=== PATIENT | male | born 1980 | race Caucasian/White ===

== ENCOUNTER 2018-04-05 06:15 | Day surgery (SDC) | payer BC ==
[2018-04-05] VITALS (17 sets, daily range): BP systolic 100–123; BP diastolic 54–89
[~2018-04-05] VITALS: Ht 180.3 cm; Wt 78.9 kg
--- NOTE | 2018-04-05 06:20 | Emergency Room Report ---
History of Present Illness General Chief Complaint: abdominal pain Source: Patient Present Illness HPI Patient is a 37-year-old male presented after increased abdominal pain. Patient was having increased pain to the epigastric area. Patient had recently seen accountant certified public and was noted to have worsening pain.Patient was noted to have increased epigastric pain. He had frequent NSAID use. Pain was severe in nature. He denies any vomiting. Allergies: Coded Allergies: No Known Allergies (Unverified , 04/05/18) Patient History Past Medical History: see triage record Reviewed Nursing Documentation: PMH: Agreed; PSxH: Agreed Review of Systems All Other Systems: limited - by mental status Physical Exam Sp02 EP Interpretation: reviewed, normal General Appearance: normal inspection, well appearing, no apparent distress, alert, GCS 15 Head: atraumatic ENT: normal ENT inspection, hearing grossly normal, normal voice Neck: normal inspection, full range of motion, supple, no bony tend Respiratory: normal inspection, lungs clear, normal breath sounds, no respiratory distress, no retraction, no wheezing Cardiovascular #1: regular rate, rhythm, no edema Gastrointestinal: soft, tenderness Genitourinary: no CVA tenderness Musculoskeletal: normal inspection, back normal, normal range of motion Neurologic: normal inspection, alert, oriented x3, responsive, mechanical project engineer III-XII nml as tested, speech normal Psychiatric: normal inspection, judgement/insight normal, mood/affect normal Skin: normal inspection, normal color, no rash Medical Decision Making Diagnostic Impression: Primary Impression: Gastritis ER Course Patient presented for abdominal pain. Differential diagnoses included ischemic bowel, appendicitis, perforated viscus, abdominal aortic aneurysm, inferior myocardial infarction, viral gastroenteritis. Because of complexity of patient' s case laboratory testing and imaging studies were ordered. Patient was noted to have increased epigastric pain. GI consult was obtained.Patient was noted to have recent NSAID use. There is some concern for gastric ulcer. Patient had endoscopy and was noted to have some gastritis as well as duodenitis. Patient will be discharged home. Labs Test 04/05/18 06:40 04/05/18 07:10 White Blood Count 4.8 K/UL (4.8-10.8) Red Blood Count 5.00 M/UL (4.70-6.10) Hemoglobin 15.8 G/DL (14.2-18.0) Hematocrit 44.6 % (42.0-52.0) Mean Corpuscular Volume 89 FL (80-99) Mean Corpuscular Hemoglobin 31.6 PG (27.0-31.0) Mean Corpuscular Hemoglobin Concent 35.4 G/DL (32.0-36.0) Red Cell Distribution Width 10.9 % (11.6-14.8) Platelet Count 138 K/UL (150-450) Mean Platelet Volume 9.1 FL (6.5-10.1) Neutrophils (%) (Auto) 50.3 % (45.0-75.0) Lymphocytes (%) (Auto) 36.3 % (20.0-45.0) Monocytes (%) (Auto) 9.1 % (1.0-10.0) Eosinophils (%) (Auto) 3.7 % (0.0-3.0) Basophils (%) (Auto) 0.6 % (0.0-2.0) Sodium Level 142 MMOL/L (136-145) Potassium Level 3.8 MMOL/L (3.5-5.1) Chloride Level 105 MMOL/L (98-107) Carbon Dioxide Level 34 MMOL/L (21-32) Anion Gap 3 mmol/L (5-15) Blood Urea Nitrogen 20 mg/dL (7-18) Creatinine 1.2 MG/DL (0.55-1.30) Estimat Glomerular Filtration Rate > 60 mL/min (>60) Glucose Level 99 MG/DL (74-106) Calcium Level 8.8 MG/DL (8.5-10.1) Total Bilirubin 0.3 MG/DL (0.2-1.0) Aspartate Amino Transf (AST/SGOT) 16 U/L (15-37) Alanine Aminotransferase (ALT/SGPT) 23 U/L (12-78) Alkaline Phosphatase 43 U/L (46-116) Total Protein 7.1 G/DL (6.4-8.2) Albumin 3.6 G/DL (3.4-5.0) Globulin 3.5 g/dL Albumin/Globulin Ratio 1.0 (1.0-2.7) Lipase 151 U/L (73-393) Urine Color Yellow Urine Appearance Clear Urine pH 5 (4.5-8.0) Urine Specific [place] 1.025 (1.005-1.035) Urine Protein Negative (NEGATIVE) Urine Glucose (UA) Negative (NEGATIVE) Urine Ketones Negative (NEGATIVE) Urine Blood Negative (NEGATIVE) Urine Nitrite Negative (NEGATIVE) Urine Bilirubin Negative (NEGATIVE) Urine Urobilinogen Normal MG/DL (0.0-1.0) Urine Leukocyte Esterase Negative (NEGATIVE) Status: improved Disposition: HOME, SELF-CARE Condition: Stable Scripts No Active Prescriptions or Reported Meds Zaire Shin MD Apr 05, 2018 06:20
--- NOTE | 2018-04-05 06:32 | NUR ---
ED Nurse Note: Patient walk in c/o upper abdominal pain for 1x week. Patient instructed by Dr Antonio to come to ED for endoscopy. Patient denies nausea/vomiting. Pt is AO x 4times, VSS, on room air no distress. ERMD seen Pt at bedside.
--- NOTE | 2018-04-05 06:50 | NUR ---
ED Nurse Note: Urine and blood sample sent to lab.
--- NOTE | 2018-04-05 06:55 | NUR ---
ED Nurse Note: Dr Antonio visited Pt at bedside.
[2018-04-05 06:57] LABS: BASOPHILS % (AUTO) 0.6 % (0.0-2.0); EOSINOPHILS % (AUTO) 3.7 % (0.0-3.0); HEMATOCRIT 44.6 % (42.0-52.0); HEMOGLOBIN 15.8 G/DL (14.2-18.0); LYMPHOCYTES % (AUTO) 36.3 % (20.0-45.0); MEAN CORPUSCULAR VOLUME 89 FL (80-99); MONOCYTES % (AUTO) 9.1 % (1.0-10.0); NEUTROPHILS % (AUTO) 50.3 % (45.0-75.0); PLATELET COUNT 138 K/UL (150-450); RED CELL DISTRIBUTION WIDTH 10.9 % (11.6-14.8); WHITE BLOOD COUNT 4.8 K/UL (4.8-10.8)
[2018-04-05 07:08] LABS: ANION GAP 3 mmol/L (5-15); BLOOD UREA NITROGEN 20 mg/dL (7-18); CALCIUM 8.8 MG/DL (8.5-10.1); CARBON DIOXIDE 34 MMOL/L (21-32); CHLORIDE 105 MMOL/L (98-107); CREATININE 1.2 MG/DL (0.55-1.30); POTASSIUM 3.8 MMOL/L (3.5-5.1); SODIUM 142 MMOL/L (136-145)
[2018-04-05 07:12] LABS: ALANINE AMINOTRANSFERASE 23 U/L (12-78); ALBUMIN 3.6 G/DL (3.4-5.0); ALKALINE PHOSPHATASE 43 U/L (46-116); ASPARTATE AMINO TRANSFERASE 16 U/L (15-37); BILIRUBIN,TOTAL 0.3 MG/DL (0.2-1.0)
--- NOTE | 2018-04-05 07:15 | NUR ---
ED Nurse Note: Pt went to GI lab procedure.
--- NOTE | 2018-04-05 07:18 | Pre-Procedure Note/Attestation ---
Pre-Procedure Note/Attestation Complete Prior to Procedure Planned Procedure: not applicable Procedure Narrative: egd Indications for Procedure Pre-Operative Diagnosis: abd pain Attestation I attest that I discussed the nature of the procedure; its benefits; risks and complications; and alternatives (and the risks and benefits of such alternatives ), prior to the procedure, with the patient (or the patient's legal maintenance representative). I attest that, if there was a reasonable possibility of needing a blood transfusion, the patient (or the patient's legal maintenance representative) was given the [facility] standardized written summary, pursuant to the Aidan Tessie Blood Safety Act ([place] Health and Safety Code # 1645, as amended). I attest that I re-evaluated the patient just prior to the surgery and that there has been no change in the patient's H&P, except as documented below: Adithya Antonio MD Apr 05, 2018 07:18
[2018-04-05] MEDS ORDERED: Midazolam 2mg/2ml Inj ONE (07:20)
--- NOTE | 2018-04-05 07:21 | Short Stay Surgery H&P ---
History of Present Illness History of Present Illness Chief Complaint abd pain HPI Ki Locke is a 37 year old male who was admitted on for Abdominal Pain Patient History Allergies: Coded Allergies: No Known Allergies (Unverified , 04/05/18) PAST MEDICAL HISTORY: (1) GERD (gastroesophageal reflux disease) Medication History No Active Prescriptions or Reported Meds Review of Systems Cardiovascular: Reports: no symptoms Respiratory: Reports: no symptoms Skeletal: Reports: no symptoms Gastrointestinal: Reports: no symptoms Genitourinary: Reports: no symptoms Neurologic: Reports: no symptoms Endocrine: Reports: no symptoms Physical Exam Vital Signs Last Vital Signs Date Time Temp Pulse Resp B/P (MAP) Pulse Ox O2 Delivery O2 Flow Rate FiO2 04/05/18 06:53 97.4 65 17 100/54 97 Room Air Labs Laboratory Tests Test 04/05/18 06:40 04/05/18 07:10 White Blood Count 4.8 K/UL (4.8-10.8) Red Blood Count 5.00 M/UL (4.70-6.10) Hemoglobin 15.8 G/DL (14.2-18.0) Hematocrit 44.6 % (42.0-52.0) Mean Corpuscular Volume 89 FL (80-99) Mean Corpuscular Hemoglobin 31.6 PG (27.0-31.0) H Mean Corpuscular Hemoglobin Concent 35.4 G/DL (32.0-36.0) Red Cell Distribution Width 10.9 % (11.6-14.8) L Platelet Count 138 K/UL (150-450) L Mean Platelet Volume 9.1 FL (6.5-10.1) Neutrophils (%) (Auto) 50.3 % (45.0-75.0) Lymphocytes (%) (Auto) 36.3 % (20.0-45.0) Monocytes (%) (Auto) 9.1 % (1.0-10.0) Eosinophils (%) (Auto) 3.7 % (0.0-3.0) H Basophils (%) (Auto) 0.6 % (0.0-2.0) Sodium Level 142 MMOL/L (136-145) Potassium Level 3.8 MMOL/L (3.5-5.1) Chloride Level 105 MMOL/L (98-107) Carbon Dioxide Level 34 MMOL/L (21-32) H Anion Gap 3 mmol/L (5-15) L Blood Urea Nitrogen 20 mg/dL (7-18) H Creatinine 1.2 MG/DL (0.55-1.30) Estimat Glomerular Filtration Rate > 60 mL/min (>60) Glucose Level 99 MG/DL (74-106) Calcium Level 8.8 MG/DL (8.5-10.1) Total Bilirubin 0.3 MG/DL (0.2-1.0) Aspartate Amino Transf (AST/SGOT) 16 U/L (15-37) Alanine Aminotransferase (ALT/SGPT) 23 U/L (12-78) Alkaline Phosphatase 43 U/L (46-116) L Total Protein 7.1 G/DL (6.4-8.2) Albumin 3.6 G/DL (3.4-5.0) Globulin 3.5 g/dL Albumin/Globulin Ratio 1.0 (1.0-2.7) Lipase 151 U/L (73-393) Urine Color Pending Urine Appearance Pending Urine pH Pending Urine Specific [place] Pending Urine Protein Pending Urine Glucose (UA) Pending Urine Ketones Pending Urine Blood Pending Urine Nitrite Pending Urine Bilirubin Pending Urine Urobilinogen Pending Urine Leukocyte Esterase Pending Skin: normal HENT: normal Heart: normal Lungs: normal Abdomen: normal Extremities: normal Plan Plan of Care egd Attestation Are the patient's medical conditions optimized for surgery? Attestation Response: yes Adithya Antonio MD Apr 05, 2018 07:21
[2018-04-05 07:24] LABS: APPEARANCE,URINE CLEAR; BILIRUBIN, URINE NEGATIVE (NEGATIVE); GLUCOSE, URINE (UA) NEGATIVE (NEGATIVE); KETONES,URINE NEGATIVE (NEGATIVE); LEUKOCYTE ESTERASE ,URINE NEGATIVE (NEGATIVE); NITRITE,URINE NEGATIVE (NEGATIVE); PH,URINE 5 (4.5-8.0); PROTEIN,URINE NEGATIVE (NEGATIVE); UROBILINOGEN,URINE NORMAL MG/DL (0.0-1.0)
[2018-04-05] MEDS ORDERED: fentaNYL 100 mcg/2 mL IV ONE (07:26)
--- NOTE | 2018-04-05 07:27 | Moderate Sedation - Procedural ---
Moderate Sedation HPI Home Medication No Active Prescriptions or Reported Meds Patient History Allergies: Coded Allergies: No Known Allergies (Unverified , 04/05/18) Pre-Procedural Mod Sedation Date: Apr 05, 2018 Vital Signs abd pain Pre-Sedation Assessment: Eval. Immed. Prior to Sed, Patient Examined, Plan for Sedation Discuss Airway Assessment (Malampati): II Heart: normal Lungs: normal Abdomen: normal Extremities: normal Evaluation Hx of untoward rxns to mod sed: No Procedures/Plans: EGD Plan for Moderate Sedation: Midazolam, Fentanyl ASA Score: I Informed Consent The nature of the procedure/sedation; its benefits; risks and complications; and alternatives (and the risks and benefits of such alternatives) were discussed with the patient (or their legal sales representative public utilities), prior to the procedure. All questions were answered to the patient's (or their legal sales representative public utilities's) satisfaction and the patient (or their legal sales representative public utilities) gave informed consent to the procedure. I attest that I re-evaluated the patient just prior to the surgery and that there has been no change in the patient's H&P, except as documented below: Adithya Antonio MD Apr 05, 2018 07:27
[2018-04-05 07:29] LABS: COLOR,URINE YELLOW
[2018-04-05] MEDS ORDERED: DiphenhydrAMINE 50mg/ml Inj IVP SCH (07:35)
[2018-04-05] MEDS ORDERED: Midazolam 2mg/2ml Inj IVP SCH ×2 (07:36→08:38)
[2018-04-05] MEDS ORDERED: fentaNYL 100 mcg/2 mL IV SCH (07:36)
--- NOTE | 2018-04-05 07:47 | Endoscopy Procedure Note ---
Endoscopy Procedure Note General Indication for Procedure: abd pain Procedures Performed: EGD Operative Findings/Diagnosis: gastritis Specimen: yes Pt Tolerated Procedure Well: Yes Estimated Blood Loss: none Anesthesia Anesthesiologist: none Anesthesia: moderate sedation Medications Medication Given: midazolam, flumazenil Inserted Devices Implant(s) used?: No GI Core Measures 50 yrs or older w/o bx or poly: Not Applicable 10yrs. F/U not recommended: Not Applicable Adithya Antonio MD Apr 05, 2018 07:47
--- NOTE | 2018-04-05 08:45 | Procedure Note ---
DATE OF PROCEDURE: 04/05/2018 SURGEON: Adithya Antonio M.D. PROCEDURE: Upper endoscopy with biopsy. REASON FOR PROCEDURE: The procedure, risks, benefits, and possible consequences, including hemorrhage, aspiration, perforation and infection, and alternative treatments, were explained to the patient/legal guardian by Dr. Adithya Antonio and the patient/legal guardian understood and accepted these risks. ANESTHESIA: 4 mg of Versed, 50 mcg of fentanyl IV, and 25 mg of Benadryl. INDICATION: Abdominal pain, rule out gastric ulcer. PROCEDURE IN DETAIL: After informed consent was obtained and the patient was adequately sedated, the Olympus upper endoscope was advanced from mouth into the second portion of duodenum and retroflexion was performed in the stomach. The patient had evidence of diffuse gastritis and mild duodenitis. Random biopsy from antrum and body were obtained to rule out H. pylori infection. The rest of the upper endoscopic examination grossly looked within normal limits. There was no evidence of any esophagitis. No esophageal varices. No gastric varices. No gastric ulceration. No duodenal ulcerations. The patient tolerated the procedure without any complication. SUMMARY OF FINDINGS: 1. Gastritis. 2. Minimal duodenitis. RECOMMENDATIONS: Follow up biopsy results and treat accordingly. The patient to follow with his sports management doctor today to further workup of his abdominal pain. Adithya Antonio M.D. DR: RAMIRO JOB#: [id number] CC:
== END 2018-04-05 09:00 | disposition home or self-care (01) ==
LOC: EMR 06:41 → GAS 07:31 → EDBEDREQ 07:35 → GAS 09:00
DX: K29.50 Unspecified chronic gastritis without bleeding (principal); K29.80 Duodenitis without bleeding
CPT/HCPCS: 36415; 43239; 80053; 81003; 83690; 85025; J2250; J3010